=== PATIENT | female | born 1945 | race Asian ===

== ENCOUNTER 2022-06-13 19:29 | Inpatient (IN) | payer SELFPAY ==
[~2022-06-13] VITALS: Ht 157.5 cm; Wt 56.7 kg
[2022-06-13 20:43] LABS: BASOPHILS % 0.4 % (0.0-2.0); EOSINOPHILS % 1.8 % (0.0-5.0); HEMATOCRIT. 35.5 % (36.0-48.0); HEMOGLOBIN. 11.8 g/dL (12.0-16.0); LYMPHOCYTES % 16.5 % (20.0-50.0); MEAN CORPUSCULAR HEMOGLOBIN 32.5 pg (28.0-32.0); MEAN CORPUSCULAR VOLUME 97.6 fL (81.0-99.0); MEAN PLATELET VOLUME 8.2 fl (7.4-10.4); MONOCYTES % 8.1 % (2.0-8.0); NEUTROPHILS % 73.2 % (40.0-76.0); PLATELET 214 x1000/uL (130-400); RED BLOOD CELL COUNT 3.64 mill/uL (4.2-5.4); RED CELL DISTRIBUTION WIDTH 12.6 % (11.6-14.6)
[2022-06-13 20:54] LABS: CHLORIDE 106 mEq/L (98-107)
[2022-06-13 21:03] LABS: ETHANOL BLOOD < 10 mg/dL
[2022-06-13 21:12] LABS: CLARITY URINE CLEAR (CLEAR); COLOR URINE YELLOW (YELLOW); KETONES URINE NEGATIVE (NEGATIVE); LEUKOCYTE ESTERASE URINE TRACE (NEGATIVE); NITRITE URINE NEGATIVE (NEGATIVE); OCCULT BLOOD URINE NEGATIVE (NEGATIVE); PH URINE 6.5 (4.5-8.0); PROTEIN URINE NEGATIVE (NEGATIVE); SPECIFIC GRAVITY URINE 1.023 (1.005-1.030); UROBILINOGEN URINE 0.2 E.U./dL (0.2-1.0)
[2022-06-13 21:22] LABS: *AMPHETAMINES SCREEN URINE NEGATIVE (NEGATIVE); *BARBITURATES SCREEN URINE NEGATIVE (NEGATIVE); *BENZODIAZEPINES SCREEN URINE NEGATIVE (NEGATIVE); *COCAINE SCREEN URINE NEGATIVE (NEGATIVE); CANNABINOID URINE SCREEN NEGATIVE (NEGATIVE); METHADONE URINE SCREEN NEGATIVE (NEGATIVE); OPIATES URINE SCREEN NEGATIVE (NEGATIVE); PHENCYCLIDINE URINE SCREEN NEGATIVE (NEGATIVE)
[2022-06-13] MEDS ORDERED: ASPIRIN 81MG TABLET PO ONE (22:00)
[2022-06-13] MEDS ORDERED: IOHEXOL-350 100 ML BOTTLE ONE (23:00)
[2022-06-14 08:00] VITALS: BP 132/86
[2022-06-14 09:00] VITALS: BP 154/85
[2022-06-14] MEDS ORDERED: ACETAMINOPHEN 325MG TABLET PO PRN (09:45)
[2022-06-14] MEDS ORDERED: DIPHENHYDRAMINE 50MG/ML VIAL IV PRN (09:45)
[2022-06-14] MEDS ORDERED: ONDANSETRON HCL 4MG/2ML INJ IV PRN (09:45)
[2022-06-14] MEDS ORDERED: IPRATROPIUM/ALBUTEROL 0.5-3(2.5)MG/3ML NEB HHN PRN (09:45)
[2022-06-14] MEDS ORDERED: CLONIDINE 0.1MG TABLET PO PRN (09:45)
[2022-06-14 12:00] VITALS: BP 154/85
[2022-06-14 16:00] VITALS: BP 142/86
[2022-06-14] MEDS ORDERED: GLYB1TAB35 PO (16:06)
[2022-06-14] MEDS ORDERED: ASPI-1160 PO (16:06)
[2022-06-14] MEDS ORDERED: HYDR12.54 PO (16:06)
[2022-06-14] MEDS ORDERED: DEXTROSE 50% WATER 50ML SYRINGE IV PRN (17:30)
[2022-06-14] MEDS: BLOOD SUGAR DIAGNOSTIC STRIP TEST SCH ×2 (17:40→21:00)
[2022-06-14] MEDS: INSULIN LISPRO 100 UNITS/ML SUBCUT SCH ×2 (17:40→22:44)
[2022-06-14 20:00] VITALS: BP 149/70
[2022-06-15] VITALS: BP 147/87
[2022-06-15 04:00] VITALS: BP 153/90
[2022-06-15] MEDS: BLOOD SUGAR DIAGNOSTIC STRIP TEST SCH ×2 (07:25→12:49)
[2022-06-15] MEDS: INSULIN LISPRO 100 UNITS/ML SUBCUT SCH ×2 (07:25→12:49)
[2022-06-15 08:00] VITALS: BP 127/87
[2022-06-15 09:20] LABS: BASOPHILS % 0.8 % (0.0-2.0); EOSINOPHILS % 3.3 % (0.0-5.0); HEMATOCRIT. 38.8 % (36.0-48.0); HEMOGLOBIN. 13.1 g/dL (12.0-16.0); LYMPHOCYTES % 24.1 % (20.0-50.0); MEAN CORPUSCULAR HEMOGLOBIN 32.5 pg (28.0-32.0); MEAN CORPUSCULAR VOLUME 96.7 fL (81.0-99.0); MEAN PLATELET VOLUME 8.6 fl (7.4-10.4); MONOCYTES % 7.6 % (2.0-8.0); NEUTROPHILS % 64.2 % (40.0-76.0); PLATELET 238 x1000/uL (130-400); RED BLOOD CELL COUNT 4.02 mill/uL (4.2-5.4); RED CELL DISTRIBUTION WIDTH 12.7 % (11.6-14.6)
[2022-06-15 09:25] LABS: CHLORIDE 103 mEq/L (98-107)
[2022-06-15 12:00] VITALS: BP 147/74
[2022-06-15] MEDS ORDERED: CLOPIDOGREL 75MG TABLET PO SCH (14:00)
[2022-06-15] MEDS ORDERED: LIP40 PO (15:03)
[2022-06-15] MEDS ORDERED: CLOP75TA33 MT (15:03)
[2022-06-15 16:00] VITALS: BP 142/85
[2022-06-15 16:14] VITALS: BP 142/85
[2022-06-15] MEDS ORDERED: ATORVASTATIN CALCIUM 40MG TABLET PO SCH (21:00)
[2022-06-16] MEDS ORDERED: ASPIRIN 325MG EC TABLET PO SCH (09:00)
== END 2022-06-15 17:00 | disposition home or self-care (01) | DRG 47 ==
LOC: ER 19:29 → EDBEDREQTM 19:54 → 8WST 06-14 00:44 → EDBD 06-14 00:44 → EDBEDREQSVC 06-14 00:46 → EDBEDREQTM 06-14 00:46 → EDBEDREQDT 06-14 00:46 → EDBEDREQ 06-14 00:46 → ENRESERV 06-14 06:12
PROVIDERS: ADMIT Internal Medicine; ATTEND Internal Medicine
DX: G45.9 Transient cerebral ischemic attack, unspecified (principal); E11.9 Type 2 diabetes mellitus without complications; I10 Essential (primary) hypertension
CPT/HCPCS: 36415; 70496; 70498; 70551; 71045; 80053; 80305; 80320; 81003; 82962; 83036; 84484; 85025; 93005; 93970; 93971; 97162; 97165; 99291; J1815; Q9967; G0480